=== PATIENT | male | born 1940 | race African-American/Black ===

== ENCOUNTER 2019-04-20 20:40 | Inpatient (IN) | payer OTHER ==
[~2019-04-20] VITALS: Ht 167.6 cm; Wt 77.6 kg
[2019-04-20 20:48] VITALS: BP 150/86
[2019-04-20] MEDS ORDERED: SIMVASTATIN20 MG PO (20:53)
[2019-04-20] MEDS ORDERED: CARVEDILOL12.5 MG PO (20:54)
[2019-04-20 21:17] LABS: URINE BILIRUBIN NEGATIVE (Negative); URINE BLOOD 3+ (Negative); URINE CLARITY CLEAR; URINE COLOR YELLOW; URINE GLUCOSE-RANDOM* NEGATIVE (Negative); URINE KETONES NEGATIVE (Negative); URINE NITRITE-REFLEX NEGATIVE (Negative); URINE PROTEIN (DIPSTICK) 2+ (Negative)
[2019-04-20 21:20] LABS: URINE LEUKOCYTES-REFLEX 3+ (Negative)
[2019-04-20 21:46] LABS: CASTS None Seen /LPF (None Seen); CRYSTALS None Seen /LPF (None Seen); SQUAMOUS None Seen /LPF (0-3); URINE RBC 0-2 Rare /HPF (0-2); URINE WBC-REFLEX >25 Many /HPF (0-5)
[2019-04-20 22:04] LABS: HEMOGLOBIN 11.4 gm/dL (14.0-18.0)
[2019-04-20 22:06] LABS: ABSOLUTE NEUTROPHILS 8.1 thou/uL (1.4-8.2); BASOPHILS 0.4 % (0.0-2.0); EOSINOPHILS 0.4 % (0.0-3.0); HEMATOCRIT 32.9 % (42.0-52.0); MCH 31.6 pg (26.0-34.0); MCHC 34.5 g/dL (28.0-37.0); MCV 91.5 fL (80.0-100.0); MONOCYTES 8.3 % (1.0-8.0); PLATELET COUNT 238 thou/uL (150-400); POLYS 80.9 % (36.0-66.0); RDW 13.9 % (10.5-14.5)
[2019-04-20 22:19] LABS: CALCIUM 8.7 mg/dL (8.5-10.1); CREATININE 2.4 mg/dL (0.7-1.3)
[2019-04-20 22:25] LABS: ALBUMIN 2.5 g/dL (3.4-5.0); TOTAL BILIRUBIN 0.4 mg/dL (<0.1-1.0); TOTAL PROTEIN 7.7 g/dL (6.4-8.2)
[2019-04-20 23:30] VITALS: BP 151/58
[2019-04-21 00:22] VITALS: BP 133/67
--- NOTE | 2019-04-21 00:52 | NUR ---
PT WAS ADMITTED AT APPROX 2345 FROM THE ER IN A STABLE CONDITION.PT DENIED PAIN /N/V SO FAR.PER REPORT PT UP ADLIB IN ROOM.IVF INFUSING ORDERED.ADMISSION HX,EDUCATION AND ASSESSMNET COMPLETED.PT RESTING ON HIS BED AT THIS TIME.CALL LIGHT WITHIN REACH.
[2019-04-21 04:23] VITALS: BP 138/56
[2019-04-21 06:29] LABS: HEMATOCRIT 30.7 % (42.0-52.0); HEMOGLOBIN 10.5 gm/dL (14.0-18.0); MCH 31.4 pg (26.0-34.0); MCHC 34.2 g/dL (28.0-37.0); RBC 3.34 mil/uL (4.50-6.00); WBC 10.3 thou/uL (4.0-11.0)
[2019-04-21 06:39] LABS: CALCIUM 8.6 mg/dL (8.5-10.1); CREATININE 2.3 mg/dL (0.7-1.3); POTASSIUM 4.1 mmol/L (3.5-5.1)
[2019-04-21 08:25] VITALS: BP 120/58
--- NOTE | 2019-04-21 14:31 | NUR ---
Chart reviewed and case discussed with the care team. Audio/Video Engineer visited with the pt at bedside. Cm role introduced. Pt is a&ox4 and lives independently in a ranch style home with no steps. He is semi retired and still works for the [employer]. 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 His emergency contact is his cousin Radha Edmond. He denies any dc concerns. He has a pcp and health ins for f/u care. No cm interventions indicated. Will remain available should needs arise.
[2019-04-21 16:51] VITALS: BP 116/51
[2019-04-21 19:45] VITALS: BP 116/54
--- NOTE | 2019-04-21 20:03 | NUR ---
ASSUMED CARE OF PATIENT AT 0715, PATIENT ALERT AND ORIENTED X 4. PATIENT UP WITH SBA, DUE TO IV POLE. PATIENT DENIES PAIN THIS SHIFT. PATIENT HAS RIGHT AC IV IN PLACE WITH NS AT 80CC/HR. TEMP ELEVATED THIS EVENING, TYLENOL 650 MG, NOTIFIED DR SPENCE OF ELEVATED TEMP. TEMP DOWN TO 98.0. WILL CONTINUE TO MONITOR.
[2019-04-22 05:09] VITALS: BP 128/59
[2019-04-22 07:49] VITALS: BP 125/63
--- NOTE | 2019-04-22 09:14 | NUR ---
Nutrition: Assessed d/t 2 point risk per nursing screen. Reported 2-13# of wt loss and decreased eating for 1 week. Admit for UTI, THOMAS. Hx: CAD s/p CABG, HTN, hyperlipidemia. Managed 50% of all meals yesterday on heart healthy diet. Shares that PO intake was lower d/t taste changes he experienced. Believes it is largely related to recent illness w/ fever. Since admit, now on antibiotics and pt feels taste and PO are both improved. Enjoyed [employer] last night. Reports dropping from 178# to 171# in 1 wk from fluid. States "I was urinating so much." BMI still 27.6 kg/m2. Do not feel pt meets sufficient criteria for malnutrition. Discussed low Na, protein, small portions to help. Pt plans to snack on nuts for extra kcals if needed between meals. Low risk.
--- NOTE | 2019-04-22 15:06 | NUR ---
ORDERS RECEIVED FOR EVAL AND TREAT. SPOKE WITH Pt WHO STATES HE WORKED WITH [employer] WITHOUT ANY DIFFICULTY AND DID NOT FEEL HE HAS ANY ISSUES WITH STRENGTH OR MOBILITY. [employer] HAD DISCHARGED HIM FROM THEIR SERVICES DUE TO BEING TOO HIGH LEVEL. Pt DECLINING [employer] EVAL BUT APPEARS SAFE FOR HOME WHEN MEDICALLY CLEAR
[2019-04-22 16:38] VITALS: BP 122/60
--- NOTE | 2019-04-22 19:45 | NUR ---
ASSUMED CARE OF PATIENT AT 0715, PATIENT ALERT AND ORIENTED X 4. PATIENT UP WITH SBA DUE TO IV POLE. PATIENT DENIES PAIN THIS SHIFT. PATIENT HAS LEFT AC WITH NS AT 800CC/HR. PATIENT RECEIVED BATH THIS SHIFT. OT/PT EVAL ORDERED TODAY. POSIBLE DISCHARGE TOMORROW TO HOME. WILL CONTINUE TO MONITOR.
[2019-04-22 20:05] VITALS: BP 148/69
[2019-04-23 04:00] VITALS: BP 148/66
--- NOTE | 2019-04-23 06:44 | NUR ---
ASSUMED CARE OF PT @1900. PT A&OX4. PT CALLS APPROPRAITELY FOR ASSISTANCE. USES THE URINAL. STEADY GAIT. ASSESSMENT BENIGN
[2019-04-23 07:53] VITALS: BP 151/68
[2019-04-23] MEDS ORDERED: CEFUROXIME250 MG PO (10:12)
[2019-04-23 10:16] VITALS: BP 151/68
--- NOTE | 2019-04-23 11:57 | NUR ---
PATIENT DISCHARGED HOME AT THIS TIME. RESPIRATIONS RE NON LABORED. PLEASANT. UNDERSTOOD DISCHARGE INDSTRUCTIONS. WILL BE GOING HOME WITH FAMILY VIA PRIVATE CAR.
== END 2019-04-23 11:58 | disposition home or self-care (01) | DRG 689 ==
LOC: ER 20:40 → EROBS 22:41 → 4E 22:41 → ENTRNSPT 04-23 11:09 → EDTRNSPTSTS 04-23 11:14 → 4E 04-23 11:58
PROVIDERS: Nurse Practitioner Family; Physician Assistant; ADMIT Hospitalist
DX: N12 Tubulo-interstitial nephritis, not specified as acute or chronic (principal); E43 Unspecified severe protein-calorie malnutrition; N17.9 Acute kidney failure, unspecified; I25.10 Atherosclerotic heart disease of native coronary artery without angina pectoris; E78.5 Hyperlipidemia, unspecified; Z60.2 Problems related to living alone; I12.9 Hypertensive chronic kidney disease with stage 1 through stage 4 chronic kidney disease, or unspecified chronic kidney disease; N18.9 Chronic kidney disease, unspecified; Z95.1 Presence of aortocoronary bypass graft; Z68.27 Body mass index [BMI] 27.0-27.9, adult
CPT/HCPCS: 10084